=== PATIENT | female | born 1960 | race Caucasian/White ===

== ENCOUNTER 2024-01-12 17:35 | Emergency (ER) | payer OTHER, SELFPAY ==
[2024-01-12 17:38] VITALS: BP 111/67
[2024-01-12] MEDS: ROXICODONE 5 MG PO (19:39)
--- NOTE | 2024-01-12 19:46 | ED.GENMED ---
History of Present Illness
General
Chief Complaint: Fall
Time Seen by Provider: 01/12/24 18:01
Travel History
Have you had any contact with someone who has COVID-19?: No
Do you have any symptoms of coronavirus? Fever > 100 degrees, chills, cough, shortness of breath, sore throat, loss of taste or smell, muscle aches, or headache?: No
History of Present Illness
History of Present Illness:
63-year-old female presents to the emergency department for evaluation of left hip and leg pain after a mechanical fall. She states she slipped and landed on the left side. Pain radiates from the left lower back down to the left sterling. She is able
to ambulate with pain. Denies head strike or loss of conscious. No abdominal pain or chest pain
Past History
Past History
ED Past Medical History: Renal failure (Chronic kidney disease stage IIIb), Other (Sjogren's syndrome) and Other (Lupus)
ED Past Surgical History: Cholecystectomy
Social History
Tobacco: Non-smoker
Alcohol: None
Personal:
Living: with family
Employment: Not employed
Family History
Family History: Other (Noncontributory)
Review of Systems
Review of Systems
Allergies reviewed?: Yes
All Other Systems: ROS reviewed and negative except as documented in HPI and ROS
Phy Exam
Physical Exam
Physical Exam:
GEN: Well appearing, NAD, WDWN
HEENT: Oral mucosa moist, no scleral icterus
Cardiac: Regular rate
Lung: No respiratory distress, no tachypnea
MSK: No gross deformity or injuries. No midline lumbar spine tenderness. There is reproducible tenderness to the left lateral lumbar paraspinous musculature. Left hip appears atraumatic and range of motion is unremarkable, left thigh knee and
sterling all appear atraumatic with normal range of motion however patient reports pain to palpation
Skin: Good color, no pallor or jaundice, no rashes
Neuro: AO x3, moves all extremities freely
Psych: Calm, cooperative
Course
Orders/Labs/Results
Orders:
Orders
01/12/24 18:51
CR Hip - LT w/wo Pel 2-3 Vw* Urgent
Comment:
Reason For Exam: fall L hip pain
Include a pelvis x-ray?: Yes
CR Leg Tibia/fibula Left 2 Vw Urgent
Comment:
Reason For Exam: fall
CR Lumbar Spine 2 Or 3 Views Urgent
Reason For Exam: fall low back pain
01/12/24 19:35
Oxycodone [Roxicodone] 5 mg PO NOW STA
Vital Signs
Initial and Last Documented VS:
Initial Vital Signs
Temp Pulse Resp BP Pulse Ox
99.0 F 83 18 111/67 97
01/12/24 17:38 01/12/24 17:38 01/12/24 17:38 01/12/24 17:38 01/12/24 17:38
Last Documented Vital Signs
Temp Pulse Resp BP Pulse Ox
99.0 F 83 18 111/67 97
01/12/24 17:38 01/12/24 17:38 01/12/24 17:38 01/12/24 17:38 01/12/24 17:38
MDM/Problems Addressed
MDM/Problems Addressed:
X-rays unremarkable, likely soft tissue injuries. Discussed supportive care and return parameters
*Critical Care Note
Total Time (30-74mins, 75-104mins- exclusive of procedures): Not Applicable
ED Attending Note
-
Portions of this chart may have been created with voice recognition software.� Occasional wrong word or��sound alike� substitutions may have occurred due to the inherent limitations of voice recognition software.
Discharge Plan
Departure
Patient Disposition: Home (Routine Discharge)
Date of Disposition: 01/12/24
Time of Disposition: 19:46
Patient with high blood pressure during this ER visit?: No
Discharge Problem:
Contusion of left leg
Instructions: Contusion
Prescriptions:
New
oxycodone 5 mg tablet
5 mg PO Q8H PRN (Reason: Pain) Qty: 6 0RF
No Action
pilocarpine HCl 5 MG tablet
5 mg PO TID
gabapentin 600 MG tablet
600 mg PO DAILY
pimecrolimus [Elidel] 1 APPLIC cream
1 applic S .1-2X DAILY
loteprednol etabonate [Alrex] 1 DROP drops,suspension
1 drp BOTH EYES DAILY
tramadol [Ultram] 50 MG tablet
50 mg PO PRN PRN (Reason: pain)
nortriptyline 25 MG capsule
50 mg PO HS
calcium carbonate [Tums Ultra] 400 MG tablet,chewable
400 mg PO DAILY
triamcinolone acetonide [Nasacort AQ] 16.5 GM aerosol,spray
16.5 gm NS DAILY
gabapentin 300 MG capsule
900 mg PO
Patient Comments:
Pt takes neurotin 900mg at 8pm daily.
omeprazole 20 MG capsule,delayed release(DR/EC)
60 mg PO DAILY
hydroxychloroquine 200 MG tablet
400 mg PO DAILY
albuterol sulfate 1 PUFF HFA aerosol inhaler
2 puff inhalation R Q4HPRN PRN (Reason: SOB)
biotin [Nail-Ex] 2,500 MCG tablet
2,500 mcg PO DAILY
mycophenolate sodium 360 MG tablet,delayed release (DR/EC)
360 mg PO BID
duloxetine 60 MG capsule,delayed release(DR/EC)
60 mg PO DAILY
cholecalciferol (vitamin D3) 2,000 UNITS tablet
2,000 units PO DAILY
potassium citrate 15 MEQ tablet extended release
15 meq PO DAILY
denosumab [Prolia] 60 MG/ML syringe
60 mg SQ .6 MONTHS
immun glob G(IgG)-pro-IgA 0-50 [Hizentra] 10 GM/50 ML solution
30 gm SQ .WEEK
saliva substitute combo no.9 [Biotene Dry Mouth Oral Rinse] 1,000 ML mouthwash
1 spray SPRAY DAILY PRN (Reason: dry mouth)
lifitegrast [Xiidra] 1 EACH dropperette
1 ea OP BID
xylitol [XyliMelts] 550 MG muco-adhesive buccal tablet
550 mg MM DAILY
Montelukast Sodium 10 MG Tablet
10 mg PO DAILY
Multivitamin With Minerals [Hair, Skin And Nails] 1 EACH Tablet
1 ea PO DAILY
Referrals:
Master Peterson MD [Family Provider] -
Interventions
Interventions:
*Risk Screen - Suicide Last Done: 01/12/24 17:38
*General Assessment Last Done: 01/12/24 19:56
*Neglect/Abuse Screening Last Done: 01/12/24 17:38
ED- Fall Risk Assessment Last Done: 01/12/24 19:56
*ED COVID-19 Vaccine History Last Done: 01/12/24 17:38
*Nursing Disposition Last Done: 01/12/24 19:56
ED-Musculoskeletal Assessment Last Done: 01/12/24 18:41
ED- Neurological Assessment Last Done: 01/12/24 18:41
ED-Skin Assessment Last Done: 01/12/24 19:19
Discharge Date and Time
Discharge Date/Time: 01/12/24 19:57
Print Language: JAPANESE
== END 2024-01-12 19:57 | disposition home or self-care (01) ==
LOC: EMR 17:35
PROVIDERS: EMERGENCY PHYSICIAN Emergency Medicine; FAMILY PHYSICIAN Family Medicine
DX: S80.12XA Contusion of left lower leg, initial encounter (principal); W01.0XXA Fall on same level from slipping, tripping and stumbling without subsequent striking against object, initial encounter; N18.32 Chronic kidney disease, stage 3b; M35.00 Sjogren syndrome, unspecified; Z90.49 Acquired absence of other specified parts of digestive tract
CPT/HCPCS: 99283; 72100; 73502; 73590

== ENCOUNTER → 2024-01-27 12:00 | Outpatient (REF) | payer OTHER, SELFPAY | LOC: HWCARD 12:00 | PROVIDERS: ATTENDING PHYSICIAN Physical Medicine & Rehabilitation; FAMILY PHYSICIAN Family Medicine; REFERRING PHYSICIAN Internal Medicine Nephrology | DX: Z01.818 Encounter for other preprocedural examination (principal) | CPT/HCPCS: 93005 ==

== ENCOUNTER → 2024-09-21 14:37 | Outpatient (REF) | payer OTHER, SELFPAY | LOC: EMG 14:37 | PROVIDERS: ATTENDING PHYSICIAN Psychiatry & Neurology Neurology; FAMILY PHYSICIAN Family Medicine | DX: R20.0 Anesthesia of skin (principal) | CPT/HCPCS: 95886; 95909 ==

== ENCOUNTER 2025-04-12 16:05 | Emergency (ER) | payer OTHER, SELFPAY ==
[2025-04-12 16:10] VITALS: BP 112/72
[2025-04-12 16:45] LABS: ALT (SGPT) 33 U/L (0-35); AST (SGOT) 37 U/L (14-36); Albumin 4.4 g/dl (3.5-5.0); Alkaline Phosphatase 103 U/L (38-126); Blood Urea Nitrogen 16 mg/dl (7-17); Calcium 8.9 mg/dl (8.4-10.2); Carbon Dioxide 24 mmol/L (22-30); Chloride 105 mmol/L (98-107); Glucose 92 mg/dl (70-99); Lipase 112 U/L (23-300); Potassium 4.5 mmol/L (3.5-5.1); Sodium 136 mmol/L (135-145); Total Protein 8.2 g/dl (6.3-8.2); eGFR 49.92
[2025-04-12 16:46] LABS: Hematocrit 40.6 % (37.0-47.0); Hemoglobin 13.4 g/dL (12.0-16.0); Mean Corp Hgb Conc. 33.0 g/dL (33.0-37.0); Mean Corpuscular Volume 93.3 fL (81.0-99.0); Nucleated Red Blood Cells % 0 %; Platelet Count 160 10^3/uL (130-400); Red Cell Dist. Width 13.3 % (11.5-14.5)
[2025-04-12] MEDS: NSS 1000 IV (20:02)
[2025-04-12] MEDS: ZOFRAN 4 MG IV (20:04)
--- NOTE | 2025-04-12 20:05 | ED.GENMED ---
History of Present Illness
General
Chief Complaint: Abdominal Symptoms
Source: patient
Exam Limitations: none
Time Seen by Provider: 04/12/25 19:36
Nursing documentation reviewed up to this point in time: agreed with
History of Present Illness
History of Present Illness:
65-year-old female presents with nausea with dry heaving diarrhea several episodes the past 24 hours, no chest pain mild upper abdominal pain, no fevers, no blood in the stool, she is on Zepbound, recently had increased dose, no foreign travel, no
raw or undercooked foods, no sick contacts, no antibiotic use she has chronic kidney disease, immunodeficiency, multiple autoimmune processes
Past History
Past History
ED Past Medical History: Renal failure (Chronic kidney disease stage IIIb), Other (Sjogren's syndrome) and Other (Lupus)
ED Past Surgical History: Cholecystectomy
Social History
Tobacco: Non-smoker
Alcohol: None
Drug: None
Personal:
Living: with family
Employment: Not employed
Family History
Family History: Other (Noncontributory)
Phy Exam
Physical Exam
Physical Exam:
Physical Exam
General: no apparent distress, not acutely ill
Neck: No jaundice dry lips
Heart: s1/s2 regular rate and rhythm, no murmur. equal radial pulses.
Lungs: no acute respiratory distress. clear bilaterally
Abdomen: Soft, minimal epigastric tenderness
Neuro: alert and oriented. no focal neurological deficits
Skin: no rash
Psychiatric: well kept. interactive and cooperative
Extremities: no edema.
Course
Orders/Labs/Results
Orders:
Orders
04/12/25 16:17
Complete Blood Count/With Diff Urgent
Comprehensive Metabolic Panel Urgent
Lipase Urgent
04/12/25 19:51
0.9% Sodium Chloride 1000 ml [Nss] 1,000 ml IV BOLUS
Ondansetron Injectable [Zofran] 4 mg IV NOW STA
04/12/25 20:07
EKG [Electrocardiogram (*1)] Routine
Reason for Study: Abdominal Pain
EKG- Treatment ONCE
Abnormal Lab Results
04/12/25
16:17
WBC 3.3 L 10^3/uL
(4.8-10.8)
Absolute Lymphs (auto) 0.7 L 10^3/uL
(1.2-3.4)
Immature Gran % 0.6 H %
(0-0.5)
Lymphocytes % 20.2 L %
(20.5-51.1)
Monocytes % 11.8 H %
(1.7-9.3)
Creatinine 1.2 H mg/dL
(0.6-1.0)
AST 37 H U/L
(14-36)
04/12/25 16:17
04/12/25 16:17
Vital Signs
Initial and Last Documented VS:
Initial Vital Signs
Temp Pulse Resp BP Pulse Ox
98.1 F 86 20 112/72 96
04/12/25 16:10 04/12/25 16:10 04/12/25 16:10 04/12/25 16:10 04/12/25 16:10
Last Documented Vital Signs
Temp Pulse Resp BP Pulse Ox
98.1 F 86 20 112/72 96
04/12/25 16:10 04/12/25 16:10 04/12/25 16:10 04/12/25 16:10 04/12/25 20:07
MDM/Problems Addressed
Differential Diagnosis Includes:
Dehydration due to meds, enteritis, infectious diarrhea, doubt colitis, diverticulitis or appendicitis
MDM/Problems Addressed:
Nausea diarrhea
Chronic conditions affecting care:
Immunodeficiency chronic kidney disease
Acute Exacerbation and/or Progression of Chronic Illness:
Immunodeficiency chronic kidney disease
*Pulse Oximetry
SaO2: 96
Oxygen Mode of Delivery: Room air
Patient hypoxic: no
*EKG
Interpreted by ED Provider?: Yes
Interpretation: normal
Comparison EKG: no comparison EKG present
Heart Rate: 78
Rate: normal
Rhythm: sinus
Ischemia: non-specific ST changes
*[employer] Interpretation
Rate: normal
Interpretation: normal
Heart Rate: 78
Rhythm: sinus
*Critical Care Note
Total Time (30-74mins, 75-104mins- exclusive of procedures): Not Applicable
Update Note
Update Note:
10 PM update patient feeling better after some IV fluids, offered her some Imodium which she politely refused, states she has Zofran at home from a prescription for her son, will make sure she can keep down some p.o. fluids, encouraged her to
follow-up with her prescribing physician consider a lower dose of her GLP-1
ED Attending Note
-
Portions of this chart may have been created with voice recognition software.� Occasional wrong word or��sound alike� substitutions may have occurred due to the inherent limitations of voice recognition software.
Discharge Plan
Departure
Patient Disposition: Home (Routine Discharge)
Date of Disposition: 04/12/25
Time of Disposition: 23:12
Patient with high blood pressure during this ER visit?: No
Condition: Good
Discharge Problem:
Dehydration
Instructions: Dehydration, Adult (DC), Nausea and Vomiting, Adult (DC)
Prescriptions:
No Action
pilocarpine HCl 5 MG tablet
5 mg PO TID
gabapentin 600 MG tablet
600 mg PO DAILY
pimecrolimus [Elidel] 1 APPLIC cream
1 applic S .1-2X DAILY
loteprednol etabonate [Alrex] 1 DROP drops,suspension
1 drp BOTH EYES DAILY
tramadol [Ultram] 50 MG tablet
50 mg PO PRN PRN (Reason: pain)
nortriptyline 25 MG capsule
50 mg PO HS
calcium carbonate [Tums Ultra] 400 MG tablet,chewable
400 mg PO DAILY
triamcinolone acetonide [Nasacort AQ] 16.5 GM aerosol,spray
16.5 gm NS DAILY
gabapentin 300 MG capsule
900 mg PO
Patient Comments:
Pt takes neurotin 900mg at 8pm daily.
omeprazole 20 MG capsule,delayed release(DR/EC)
60 mg PO DAILY
hydroxychloroquine 200 MG tablet
400 mg PO DAILY
albuterol sulfate 1 PUFF HFA aerosol inhaler
2 puff inhalation R Q4HPRN PRN (Reason: SOB)
biotin [Nail-Ex] 2,500 MCG tablet
2,500 mcg PO DAILY
mycophenolate sodium 360 MG tablet,delayed release (DR/EC)
360 mg PO BID
duloxetine 60 MG capsule,delayed release(DR/EC)
60 mg PO DAILY
cholecalciferol (vitamin D3) 2,000 UNITS tablet
2,000 units PO DAILY
potassium citrate 15 MEQ tablet extended release
15 meq PO DAILY
denosumab [Prolia] 60 MG/ML syringe
60 mg SQ .6 MONTHS
immun glob G(IgG)-pro-IgA 0-50 [Hizentra] 10 GM/50 ML solution
30 gm SQ .WEEK
saliva substitute combo no.9 [Biotene Dry Mouth Oral Rinse] 1,000 ML mouthwash
1 spray SPRAY DAILY PRN (Reason: dry mouth)
lifitegrast [Xiidra] 1 EACH dropperette
1 ea OP BID
xylitol [XyliMelts] 550 MG muco-adhesive buccal tablet
550 mg MM DAILY
Montelukast Sodium 10 MG Tablet
10 mg PO DAILY
Multivitamin With Minerals [Hair, Skin And Nails] 1 EACH Tablet
1 ea PO DAILY
oxycodone 5 mg tablet
5 mg PO Q8H PRN (Reason: Pain) Qty: 6 0RF
Referrals:
Master Peterson MD [Family Provider, Family Practice] - Next open appointment
Activity Restrictions/Additional Instructions:
Talk to your doctor about dosing of your GLP-1 medications and the possibility of going down to a lower dose
Interventions
Interventions:
*Risk Screen - Suicide Last Done: 04/12/25 16:10
*General Assessment Last Done: 04/12/25 16:10
TG-Ndhhoa-Lozoilpiez Assessment Last Done: 04/12/25 20:07
Discharge Date and Time
Print Language: WELSH
== END 2025-04-12 23:45 | disposition home or self-care (01) ==
LOC: EMR 16:05
PROVIDERS: Student in an Organized Health Care Education/Training Program; EMERGENCY PHYSICIAN Emergency Medicine; FAMILY PHYSICIAN Family Medicine
DX: E86.0 Dehydration (principal); R11.0 Nausea; D84.821 Immunodeficiency due to drugs; N18.32 Chronic kidney disease, stage 3b; M35.00 Sjogren syndrome, unspecified; Z90.49 Acquired absence of other specified parts of digestive tract
CPT/HCPCS: 99283; 96374; 80053; 83690; 85025; 93005